=== PATIENT | female | born 1935 | race Hispanic/Latino ===

== ENCOUNTER 2025-03-06 12:31 | Emergency (ER) | payer MEDICARE ==
[~2025-03-06] VITALS: Ht 154.9 cm; Wt 76.2 kg
[2025-03-06 13:14] VITALS: PULSE 60; RESP 17; TEMP 98.1; O2SAT 100
== END 2025-03-06 16:49 | disposition home or self-care (01) ==
LOC: ER 14:18
DX: S09.90XA Unspecified injury of head, initial encounter (principal); R51.9 Headache, unspecified; Z91.81 History of falling; W01.0XXA Fall on same level from slipping, tripping and stumbling without subsequent striking against object, initial encounter; Y92.019 Unspecified place in single-family (private) house as the place of occurrence of the external cause
CPT/HCPCS: 70450; 72125; 99283